=== PATIENT | female | born 2000 | race Caucasian/White ===

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

== ENCOUNTER 2020-02-21 18:44 | Inpatient (IN) ==
[2020-02-21] MEDS ORDERED: ONDANSETRON HCL/PF 2 MG/ML VIAL IV PRN ×3 (19:21→23:15)
[2020-02-21] MEDS ORDERED: ONDANSETRON 4 MG TAB.RAPDIS PO PRN (19:21)
[2020-02-21] MEDS ORDERED: RINGER'S SOLUTION,LACTATED 1,000 ML IV ONE ×2 (19:21→22:48)
[2020-02-21] MEDS ORDERED: PENICILLIN G POTASSIUM 5 MILLIONUNT in DEXTROSE 5 % IN WATER 100 ML IV ONE ×2 (19:21)
[2020-02-21] MEDS ORDERED: NALOXONE HCL 1 MG/1 ML SYRG IV PRN ×2 (19:21→23:15)
[2020-02-21] MEDS ORDERED: RINGER'S SOLUTION,LACTATED 1,000 ML IV PRN ×2 (19:21→21:13)
[2020-02-21] MEDS ORDERED: fentaNYL CITRATE/PF 50 MCG/ML AMPUL IT SCH (19:30)
[2020-02-21] MEDS ORDERED: BUPIVACAINE HCL/PF 30 ML VIAL EP SCH (19:30)
[2020-02-21] MEDS ORDERED: TERBUTALINE SULFATE 1 MG/ML VIAL ONE (20:31)
[2020-02-21] MEDS ORDERED: TERBUTALINE SULFATE 1 MG/ML VIAL SC PRN (20:33)
[2020-02-21] MEDS ORDERED: LIDOCAINE HCL 50 ML VIAL ONE (20:48)
--- NOTE | 2020-02-21 20:51 | PN ---
Subjective - Date and Time Seen Date: 02/21/20 Time: 20:41 Subjective Narrative: 19 yo at 38w3d presents to L&D in early labor with valerie breech presentation. Contractions began to be regular and painful around 1700 today. She was scheduled for ECV with possible C/S if unsuccessful on 02/28/20. Objective - Review of Systems Generalized/Overall Review: Reports: No Symptoms Reported EENTM: Reports: No Symptoms Reported Respiratory: Reports: No Symptoms Reported Cardiac: Reports: No Symptoms Reported Abdominal: Reports: Other - contractions Genitourinary Symptoms: Reports: No Symptoms Reported Musculoskeletal Complaints: Reports: No Symptoms Reported Neurological: Reports: No Symptoms Reported Skin: Reports: No Symptoms Reported Endocrine: Reports: No Symptoms Reported - Vitals Vitals: Last Vital Signs Temp 36.7 C 02/21/20 20:39 Pulse 84 02/21/20 20:39 Resp 18 02/21/20 20:39 BP 140/84 H 02/21/20 20:39 Pulse Ox 100 02/21/20 20:39 - Exam Constitutional: Present: Alert, Oriented x3, Cooperative, Moderate distress - with contractions ENT Exam: Present: hearing grossly normal Neck: Present: non-tender Breasts: Present: Exam deferred Respiratory: Present: lungs clear, no respiratory distress Cardiovascular/Chest: Present: regular rate, rhythm, no edema Abdomen: Present: soft, nontender, no rebound tenderness, other - gravid /Rectal: Present: Other - Cervix - 2-3/90/-3 Extremity: Present: no pedal edema, no calf tenderness Skin Exam: Present: normal color, warm/dry, no cyanosis Lymphatic: Present: no adenopathy Neurologic: Present: alert, normal mood/affect, oriented x 3 Appearance: Present: appropriate appearance, appropriate insight Eye contact: Present: cooperative, good eye contact Thoughts: Present: normal thought pattern, normal mood /affect Assessment/Plan - Problems/Diagnosis (1) First stage of labor established Problem: Acute Narrative: Only changes in her medical history/condition since her pre-op H&P on 02/20/20 is painful contractions. The r/b/a to ECV and C/S discussed with patient again. She desires to proceed with plan as discussed earlier. After epidural placed will give one dose of terbutaline and attempt ECV. If unsuccessful, will proceed with primary LTCS, otherwise, continue labor. (2) Breech presentation Problem: Acute Qualifiers: Fetus number: single or unspecified fetus (3) Tobacco abuse Problem: Resolved (4) Anxiety Problem: Inactive (5) Depression Problem: Inactive Qualifiers:
--- NOTE | 2020-02-21 21:11 | ANES ---
Anesthesia Pre Procedure Eval Vitals/Labs: Last Vital Signs Temp 36.7 C 02/21/20 20:39 Pulse 84 02/21/20 20:39 Resp 18 02/21/20 20:39 BP 140/84 H 02/21/20 20:39 Pulse Ox 100 02/21/20 20:39 HOME MEDICATIONS Acetaminophen [Tylenol] 500 mg PO Q6H PRN 03/17/18 [Last Taken Unknown] Vits96/Iron Fum/Folic [ S] 1 tab PO DAILY 02/16/20 [Last Taken 02/15/20] Allergies/Adverse Reactions: Allergies Allergy/AdvReac Type Severity Reaction Status Date / Time No Known Drug Allergies Allergy Verified 02/21/20 18:57 - Planned Procedure Planned Procedure: LABOR Medication List Reviewed:: Yes Allergies Verified: Yes Medical History (Last Reviewed 02/21/20 @ 21:10 by Washington Stern CRNA) Marijuana user (Resolved) Tobacco abuse (Resolved) Depression (Inactive) Anxiety (Inactive) Anxiety Bladder infection, chronic patient states is a chronic issue Depression Anorexia nervosa through high school Surgical History (Last Reviewed 02/21/20 @ 21:10 by Washington Stern CRNA) H/O wisdom tooth extraction Family History (Last Reviewed 02/21/20 @ 21:10 by Washington Stern CRNA) Mother History of cardiac disorders unknown hole in heart Father History of cardiac disorders unknown enlarged heart Diabetes Grandfather History of cardiac disorders unknown enlarged heart/has pacemaker - Family Anesthesia History Family History:: no untoward family reactions to anesthesia - Airway/Neck/Teeth Within Normal Limits:: Yes Teeth Condition: intact Neck Exam: full range of motion Mallampatti Score: 1 Thyromental (T-M) distance: > 6 cm Mandibulo Hyoid distance: > 3 cm - Respiratory Respiratory Physical: lungs clear Smoking Status: Current every day smoker Discussed smoking cessation including day of surgery: Yes Sleep Apnea currently treated: No Sleep Apnea by current assessment: No - Cardiovascular Tolerate Activity: Good Heart Sounds: S1 & S2, Regular - Gastrointestinal NPO since: 1699 - Anesthesia Assessment and Plan ASA Class: PS, II, E Anesthesia Type Plan: Epidural Planned difficult intubation/equipment available: No
--- NOTE | 2020-02-21 21:12 | ANES ---
Anesthesia Procedure Note Procedure Note: ANESTHESIA PROCEDURE NOTE Date of Procedure: 02/21/2020 Time of procedure: 2049. Performed by: Sam Stern CRNA Marine Consultant: None. Preprocedure diagnosis: Active labor. Post procedure diagnosis: Same. Procedure: Insertion of labor epidural. Indications: The patient is a 19-year-old prima para female in active labor requesting labor epidural for pain management. Findings: See below. Details of the procedure: The patient was placed in a sitting position. Back was prepped with DuraPrep. Patient was then draped in a sterile fashion. Lidocaine 1% was infiltrated to the skin and subcutaneous tissues at the level of the L3 4 interspace. The epidural space was identified using a 18-gauge Tuohy needle with [id number] technique. 20 mcg fentanyl and 2.5 mg 0.5% preservative- free Marcaine was given intrathecally using a 27 ga. spinal needle. Epidural catheter was inserted without difficulty. Negative test dose was elicited using 5 mL of 1.5% preservative-free lidocaine plus epinephrine 1 200,000. The epidural catheter was then taped and secured in place. EBL: Minimal. Fluids: N/A. Specimen: N/A. Post procedure condition: The patient tolerated the procedure well. No complications were noted. Thank you for this consultation. Delvalle CRNA
[2020-02-21] MEDS ORDERED: Oxytocin/Ringers Lactate 20 UNITS/1,000 ML BAG IV ONE (21:13)
[2020-02-21] MEDS ORDERED: LIDOCAINE HCL/EPINEPHRINE/PF 20 ML VIAL IJ ONE (21:14)
[2020-02-21] MEDS ORDERED: SODIUM BICARBONATE 1 MEQ/ML SYRG ONE (21:14)
[2020-02-21] MEDS ORDERED: NORMAL SALINE 20 ML VIAL ONE (21:14)
[2020-02-21] MEDS ORDERED: BUPIVACAINE HCL 50 ML VIAL ONE (21:14)
--- NOTE | 2020-02-21 21:18 | PN ---
Grupo Note - Interim Date: 02/21/20 Time: 21:14 Narrative: 02/21/20 21:14 After adequate anesthesia was obtained, external cephalic version was attempted. Bedside ultrasound revealed baby in valerie breech presentation with back to maternal left. Baby was rotated counterclockwise getting the head to the maternal right upper quadrant. This resulted in a 9-minute prolonged deceleration to the 90s which recuperated to the 150s. Further attempts at conversion were abandoned and patient is being transferred to the OR for a primary low transverse section.
[2020-02-21] MEDS ORDERED: ceFAZolin SODIUM 1 GM VIAL ONE (21:32)
[2020-02-21] MEDS ORDERED: SIMETHICONE 80 MG TAB.CHEW PO PRN (22:48)
[2020-02-21] MEDS ORDERED: BISACODYL 10 MG SUPP.RECT RC PRN (22:48)
[2020-02-21] MEDS ORDERED: IBUPROFEN 800 MG TABLET PO PRN (22:48)
[2020-02-21] MEDS ORDERED: SENNOSIDES 8.6 MG TABLET PO PRN (22:48)
--- NOTE | 2020-02-21 22:53 | OR ---
Operative Report - Dictated Report Narrative: Indication: 19-year-old 1 para 0 at 38 3/7 weeks presents to labor and delivery in early labor with breech presentation. After obtaining adequate epidural anesthesia, external cephalic version was attempted but baby did not tolerate the procedure well. Therefore, we proceeded with primary low transverse section. Status: Emergent Pre Operative Diagnosis: 38 3/7 weeks intrauterine . Breech presentation. Early labor. Failed external cephalic version. Post Operative Diagnosis: Same. Procedure Preformed: Primary Low Transverse Section Surgeon: Darlyn Mueller DO Hvac Service Manager: OR Staff Anesthesia: Epidural Estimated Blood Loss: 300 mL Urine Output: 100 mL of clear urine Fluids Given: 2000 mL of crystalloid Drains: Slaughter to gravity Surgical Complications: None Specimens: Placenta to freezer Findings: Male born at 2145 on 02/21/2022 with Apgars 8 and 9, weighing 2511 g in valerie breech presentation. Normal uterus, tubes, ovaries. Technique: The patient was taken to the operating room and placed in dorsal supine position with a left lateral tilt. After adequate epidural anesthesia, slaughter catheter insertion,SCDs placed, and 2 g of Ancef given preoperatively, the abdominal cavity was entered via a modified Abraham-Yanes incision. Two rolled laps were placed in the pericolic gutters on either side of the uterus. A transverse incision was made in the lower uterine segment and extended laterally and upwardly with digital traction. Clear fluid was noted upon amniotomy. The was delivered easily in valerie breech presentation. After approximately 30 seconds, the cord was clamped and cut and was handed off to awaiting meat dresser. The placenta was allowed to deliver spontaneously. The uterus was cleared of clot and debris. Uterine incision was closed with 0 Vicryl using a running stitch. A second imbricating layer was placed. Excellent hemostasis was noted. Rolled laps were removed from the abdominal cavitiy. The peritoneum was closed with a running 3-0 Monocryl. The same suture was used to approximate the rectus and pyramidalis muscles. The fascia was closed with a running 0 Vicryl. The subcutaneous layer was closed with a running 3-0 Monocryl. The same suture was used to approximate the subdermal layer. The skin was closed with a running 4-0 Monocryl and Dermabond. Sponge, lap, needle, and instrument count were correct x 2. Disposition: The patient was transferred to post anesthesia care unit in good condition
--- NOTE | 2020-02-21 22:55 | ANES ---
Post Anesthesia Assessment - Vital Signs Vitals: Last Vital Signs Temp 36.5 C 02/21/20 22:50 Pulse 98 02/21/20 22:50 Resp 21 H 02/21/20 22:50 BP 123/70 02/21/20 22:50 Pulse Ox 100 02/21/20 22:50 Airway Patency: Normal - Mental Status Level Of Consciousness: Awake - Pain Level Pain Score: 0 - N/V Assessment Nausea/Vomiting Presence: None Dehydration:: No
--- NOTE | 2020-02-21 22:55 | ANES ---
Post Anesthesia Discharge - Transfer of Care Transfer of Care handoff given to nurse: Yes - Discharge from PACU Discharge from PACU when meets criteria: Yes
[2020-02-21] MEDS ORDERED: BUPIVACAINE HCL/0.9 % NACL/PF 250 ML EP PRN (23:15)
[2020-02-22] MEDS: IBUPROFEN 800 MG TABLET PO PRN ×3 (05:22→20:16)
[2020-02-22] MEDS: oxyCODONE HCL/ACETAMINOPHEN 1 TAB TABLET PO PRN ×4 (05:22→18:47)
[2020-02-22] MEDS ORDERED: ceFAZolin SODIUM 1 GM VIAL IV PRN (06:00)
--- NOTE | 2020-02-22 08:50 | PN ---
Subjective - Date and Time Seen Date: 02/22/20 Time: 08:49 Objective - Vitals Vitals: Last Vital Signs Temp 36.2 C 02/22/20 04:00 Pulse 88 02/22/20 04:00 Resp 16 02/22/20 04:00 BP 126/67 02/22/20 04:00 Pulse Ox 98 02/22/20 04:00 Patient denies complaints. Tolerating regular diet. Has not been up to ambulate yet. SCDs in place. Pain well controlled. Lochia wnl. Abdomen - soft, appropriately tender Incision -clean, dry, intact uterus - firm, at umbilicus -1 No calf tenderness Impression: Post op day #1 s/p primary section. Plan: Continue routine post-operative/ care Cauti Physician Documentation - Urinary Catheter Management Urethral (May) Date of Insertion: 02/21/20 Time of Insertion: 21:00 Assessment/Plan - Problems/Diagnosis (1) First stage of labor established Problem: Acute (2) Breech presentation Problem: Acute Qualifiers: Fetus number: single or unspecified fetus (3) Tobacco abuse Problem: Resolved (4) Anxiety Problem: Inactive (5) Depression Problem: Inactive Qualifiers:
[2020-02-22] MEDS: PRENATAL VITS96/IRON FUM/FOLIC 1 TAB TABLET PO SCH (09:30)
[2020-02-22] MEDS: DOCUSATE SODIUM 100 MG CAPSULE PO SCH ×2 (09:30→20:16)
[2020-02-22] MEDS: ENOXAPARIN SODIUM 40 MG/0.4 ML SYRG SC SCH (11:05)
--- NOTE | 2020-02-23 05:56 | PN ---
Subjective - Date and Time Seen Date: 02/23/20 Time: 05:55 Objective - Vitals Vitals: Last Vital Signs Temp 36.6 C 02/22/20 23:45 Pulse 80 02/22/20 23:45 Resp 20 02/22/20 23:45 BP 141/76 H 02/22/20 23:45 Pulse Ox 98 02/22/20 23:45 Patient denies complaints. Ambulating well. Tolerating regular diet. Pain well controlled. Breast-feeding. Lochia wnl. Abdomen - soft, appropriately tender Incision -clean, dry, intact uterus - firm, at umbilicus -2 No calf tenderness Impression: Post op day #2 s/p primary section. Plan: Continue routine post-operative/ care Cauti Physician Documentation - Urinary Catheter Management Urethral (May) Date of Insertion: 02/21/20 Time of Insertion: 21:00 Date of Removal: 02/22/20 Time of Removal: 09:55 Assessment/Plan - Problems/Diagnosis (1) First stage of labor established Problem: Acute (2) Breech presentation Problem: Acute Qualifiers: Fetus number: single or unspecified fetus (3) Tobacco abuse Problem: Resolved (4) Anxiety Problem: Inactive (5) Depression Problem: Inactive Qualifiers:
[2020-02-23] MEDS: DOCUSATE SODIUM 100 MG CAPSULE PO SCH ×2 (10:03→21:05)
[2020-02-23] MEDS: PRENATAL VITS96/IRON FUM/FOLIC 1 TAB TABLET PO SCH (10:03)
[2020-02-23] MEDS: oxyCODONE HCL/ACETAMINOPHEN 1 TAB TABLET PO PRN (10:03)
[2020-02-23] MEDS: ENOXAPARIN SODIUM 40 MG/0.4 ML SYRG SC SCH (10:04)
[2020-02-23] MEDS: IBUPROFEN 800 MG TABLET PO PRN (21:05)
[2020-02-24] MEDS: PRENATAL VITS96/IRON FUM/FOLIC 1 TAB TABLET PO SCH (09:18)
[2020-02-24] MEDS: DOCUSATE SODIUM 100 MG CAPSULE PO SCH ×2 (09:18→20:12)
[2020-02-24] MEDS: IBUPROFEN 800 MG TABLET PO PRN ×2 (09:19→18:27)
[2020-02-24] MEDS: ENOXAPARIN SODIUM 40 MG/0.4 ML SYRG SC SCH (09:23)
--- NOTE | 2020-02-24 11:55 | PN ---
Subjective - Date and Time Seen Date: 02/24/20 Time: 11:53 Objective - Vitals Vitals: Last Vital Signs Temp 36.8 C 02/24/20 09:31 Pulse 75 02/24/20 09:31 Resp 18 02/24/20 09:31 BP 132/76 02/24/20 09:31 Pulse Ox 100 02/24/20 09:31 Patient denies complaints. Ambulating without difficulty. Tolerating regular diet. Pain well controlled. Lochia wnl. Abdomen - soft, appropriately tender Incision -clean, dry, intact uterus - firm, at umbilicus -3 No calf tenderness Impression: Post op day #3 s/p primary section. Plan: Routine discharge instructions. We will keep mother till tomorrow since baby is having trouble with feedings and blood sugar issues. Cauti Physician Documentation - Urinary Catheter Management Urethral (May) Date of Insertion: 02/21/20 Time of Insertion: 21:00 Date of Removal: 02/22/20 Time of Removal: 09:55 Assessment/Plan - Problems/Diagnosis (1) First stage of labor established Problem: Acute (2) Breech presentation Problem: Acute Qualifiers: Fetus number: single or unspecified fetus (3) Tobacco abuse Problem: Resolved (4) Anxiety Problem: Inactive (5) Depression Problem: Inactive Qualifiers:
[2020-02-25 07:16] VITALS: BP 117/73
[2020-02-25] MEDS: PRENATAL VITS96/IRON FUM/FOLIC 1 TAB TABLET PO SCH (09:12)
[2020-02-25] MEDS: ENOXAPARIN SODIUM 40 MG/0.4 ML SYRG SC SCH (09:12)
[2020-02-25] MEDS: IBUPROFEN 800 MG TABLET PO PRN (09:12)
[2020-02-25] MEDS: DOCUSATE SODIUM 100 MG CAPSULE PO SCH (09:12)
--- NOTE | 2020-02-25 09:33 | PN ---
Subjective - Date and Time Seen Date: 02/25/20 Time: 09:32 Objective - Vitals Vitals: Last Vital Signs Temp 36.4 C 02/25/20 07:08 Pulse 69 02/25/20 07:08 Resp 18 02/25/20 07:08 BP 117/73 02/25/20 07:08 Pulse Ox 98 02/25/20 07:08 Patient denies complaints. Ambulating without difficulty. Tolerating regular diet. Pain well controlled. Lochia wnl. Abdomen - soft, appropriately tender Incision -clean, dry, intact uterus - firm, at umbilicus -3 No calf tenderness Impression: Post op day #4 s/p primary section. Anxiety and depression-stable. Plan: Routine discharge instructions Cauti Physician Documentation - Urinary Catheter Management Urethral (May) Date of Insertion: 02/21/20 Time of Insertion: 21:00 Date of Removal: 02/22/20 Time of Removal: 09:55 Assessment/Plan - Problems/Diagnosis (1) First stage of labor established Problem: Resolved (2) Breech presentation Problem: Resolved Qualifiers: Fetus number: single or unspecified fetus (3) Tobacco abuse Problem: Chronic (4) Anxiety Problem: Inactive (5) Depression Problem: Inactive Qualifiers:
--- NOTE | 2020-02-25 09:40 | DS ---
OB Discharge Summary (1) First stage of labor established Status: Resolved (2) Breech presentation Status: Resolved Qualifiers: Fetus number: single or unspecified fetus (3) Tobacco abuse Status: Chronic (4) Anxiety Status: Inactive (5) Depression Status: Inactive Qualifiers: Delivery Date: 02/21/20 Delivery Time: 21:45 :: 1 Para:: 1 Gestational weeks:: 38 Gestational days:: 3 Intrapartum Procedures: Delivered, Primary Section, Delivery- Low Transverse, Anesthesia - Epidural, Other - attempted external cephalic version /OP Complications: No Complications Discharge Diagnosis: Term -Delivered, Rubella Immune - Discharge Information Date of Discharge: 02/25/20 Hospital Course: He 1-year-old 1 para 0 presented to labor and delivery in labor with breech presentation. External cephalic version was attempted but unsuccessful therefore we proceeded with a primary low transverse section which went uneventfully. Her course was uneventful. The baby however had some difficulty with blood sugars and had to stay an extra day. Since breast-feeding helped stabilize his blood sugars mother was kept an extra day to continue with encouraging and assisting with breast-feeding. Discharge Location: Home Disposition: Home self-care Condition: Good Activity on Discharge:: Activity as tolerated, Pelvic Rest, No lifting Discharge Diet: General/regular food Additional Patient Instructions (free text): Kaur your will follow up with Dr. Mueller is on Thursday, February 27, 2020 at 2:15 PM. Continue to take your vitamins one daily. Drink plenty of fluids, eat lots of fruits and vegetable and lean meat. Rest when your baby rests. Nurse on demand or at least every 2-3 hours, burping between breasts, and when finished. Prosper will follow up with Always place Prosper on his back in his own crib or bassinet for sleep. No co- sleeping. No pillows, blankets, stuffed animals, or bumper pads in his sleep space. Stephanie weight was 5# 8.5 oz. Today's weight is 5 pounds 6 oz. Blood type A positive Bilirubin is 3.8 at 79 hours of age. Prosper passed his hearing screen in both ears, passed his CHD screen, and his Metabolic Screen has been drawn. Thank you for choosing [facility] for your special event. If you have any questions or concerns please call the [facility] [phone], [facility] [phone] or PEDS [phone]. Prescriptions (Any new or edited meds): Ibuprofen [Motrin] 200 - 800 mg PO Q6H PRN #100 tab PRN Reason: Pain oxyCODONE HCL/ACETAMINOPHEN [Percocet 5 MG/325 MG] 1 tab PO Q4H PRN #10 tab PRN Reason: Moderate Pain Transmission Status: Received by [id number] Complete Home Medications List: Complete Home Medication List: Vits96/Iron Fum/Folic [ S] 1 tab PO DAILY 02/16/20 Ibuprofen [Motrin] 200 - 800 mg PO Q6H PRN #100 tab 02/22/20 oxyCODONE HCL/ACETAMINOPHEN [Percocet 5 MG/325 MG] 1 tab PO Q4H PRN #10 tab 02/22/20 breast pump See Rx Instructions .ROUTE .MEDSUPPLY #1 ea 02/23/20 - Plan Discharge to:: Home Follow up in office in:: 2 weeks - Information Weight (Grams): 2,511 Infant Sex: Male Score 1 min: 8 Score 5 min: 9 Complications: Other - Blood sugar instability Other Complications: Breech presentation
--- NOTE | 2020-02-25 09:48 | PN ---
Progess Note - Interim Date: 02/25/20 Time: 09:48 History for MU History for MU Definition: * The number of deliveries resulting in a live the patient experienced prior to current hospitalization * The previous delivery of live twins or any live multiple gestation is considered one live event. *If primagravida or nulliparous is documented select zero for the number of previous live births. Live Events: Live Events: 0
== END 2020-02-25 16:25 | disposition home or self-care (01) | DRG 788 ==
LOC: OBCLINIC 18:44 → OB 19:16
PROVIDERS: ADMIT Obstetrics & Gynecology; ATTEND Obstetrics & Gynecology